=== PATIENT | male | born 1950 | race Caucasian/White ===

== ENCOUNTER 2020-05-05 11:57 | Emergency (ER) | payer MEDICARE, BC ==
[~2020-05-05 11:57] MED LIST: Tamsulosin 0.4 MG Cap.ER ONE; traMADol 50 MG Tab ONE
--- NOTE | 2020-05-05 14:24 | ER ---
REASON FOR EMERGENCY ROOM VISIT: Right flank pain. HISTORY: This 70-year-old man began to experience some right-sided flank pain along with bloody urine yesterday at approximately 2:30 a.m. this woke him up in the middle of the night, and he applied a heating pad which helped somewhat. His urine spontaneously cleared. Early this morning, he again had right flank pain that was more on the side and more lower toward the lower flank and right lower quadrant area. It was all the same type of pain. He suspected about the possibility of kidney stones as he has had this in the past, some 15 years ago. He has taken Tylenol for this but nothing else. He does have a history of prostate cancer for which he underwent a radical prostatectomy in November of 2018. His kidney stones did require transureteral removal at that time, some 15 years ago. Incidentally, he is known to have a right-sided renal tumor, the exact nature of which is unclear at this time. This measures 2.2 cm in diameter, and for this, he has been followed by the [facility] with serial scannings, etc. It sounds as though they are watching this expectantly and do not feel this is a malignant process, but it, nonetheless, is being monitored. MRI done last month at [place] showed the tumor had grown from 2.0 to 2.2 cm in diameter within a 1- year time span. For this reason, they are going to collect urine cytology and see him again in followup in [place]. With regard to his present symptoms, he has had some mild nausea but not at the present time. He has not had any fever. PAST MEDICAL HISTORY: 1. Hypertension. 2. Hypercholesterolemia. 3. Retinal detachment. 4. Prostate cancer (see above). 5. Right renal tumor (see above). MEDICATIONS: Reviewed, please see the electronic medical record. They include the followin. Atorvastatin. 2. CoQ-10. 3. Naprosyn. 4. Acetaminophen. 5. Calcium carbonate. 6. Multivitamins. 7. Losartan. 8. Glucosamine. 9. Aspirin. 10.Pancreatic enzymes. ALLERGIES: TO ERYTHROMYCIN, HYDROCHLOROTHIAZIDE, AND HYDROCODONE. SOCIAL HISTORY: He is a nonsmoker, denies any drug use, and drinks alcohol infrequently. REVIEW OF SYSTEMS: Pertinent positives and negatives as listed in the HPI. PHYSICAL EXAMINATION: GENERAL: He is a pleasant man who does not appear to be very uncomfortable. He is in no acute distress. VITAL SIGNS: Blood pressure is 145/80, heart rate is 46, respiratory rate 16, O2 saturations 99% on room air. HEENT: Unremarkable. No scleral icterus is noted. NECK: Supple. No adenopathy. CHEST: Clear to auscultation with good air exchange bilaterally. CARDIAC: Regular rate without murmur. ABDOMEN: Soft and nontender. No masses. No hepatosplenomegaly. He has an umbilical hernia. There is no right-sided CVA tenderness. He has only mild tenderness to deep palpation over his right flank area. EXTREMITIES: Normal pulses. No edema. SKIN: No rashes. LABORATORY DATA: His CBC shows that he has a mild white count elevation of 11,500. His hemoglobin is 14.9. His UA shows trace occult blood with 5 to 10 RBCs per high-power field and 0 to 5 WBCs. It is negative for nitrites and leukocyte esterase. There are no bacteria. A CT scan was performed to rule out renal stone, and indeed, he has a 3 mm obstructing right mid ureteral calculus with mild proximal hydroureter indicating obstruction. The stone is 3 mm in diameter. IMPRESSION: Right ureterolithiasis, obstructing. PLAN: A long discussion was undertaken regarding the importance of hydration. We will go ahead and give him some tramadol to help with the discomfort he may experience, 50 mg 1 p.o. q.4 hours p.r.n. pain, dispensed #10. He will be given Flomax 0.4 mg 1 p.o. daily. The importance of hydration to promote passage of the stone was emphasized to him, and he is well aware of the routine in this regard. He should probably be seen again in followup early next week. I told him there is a decent chance that this may pass on its own. Should he experience any fever or significant increase in pain, he should feel free to contact us. He is aware of the potential for infection behind an obstructing stone and how that could be a significant problem. All questions were answered. He understands and agrees with this plan. NADJA/LINDSAY /[id number]
[2020-05-05] MEDS ORDERED: Ketorolac 60 MG/2 ML SDV IM ONE (15:04)
--- NOTE | 2020-05-06 12:46 | CT ---
Date of Service: 05/05/20 Clinical Data: right flank pain UNENHANCED ABDOMEN AND PELVIC CT: Multislice acquisition through the abdomen and pelvis and without IV or oral contrast was performed. No priors. There are emphysematous changes in both lower lungs. There are linear densities in both lung bases consistent with linear atelectasis or fibrosis. The heart size is normal. No significant pericardial effusion. The liver is normal size with homogeneous attenuation. No focal hepatic lesions. The gallbladder appears normal. No pericholecystic fluid. The spleen appears normal. The pancreas appears normal. The right and left adrenals appear normal. There is a small nonobstructive renal calculi in the lower pole of the right kidney. There is also a 3 mm right ureteral calculi located in the distal right ureter at the level of the sacrum. There is hydronephrosis and hydroureter proximal to it consistent with obstruction. The right kidney also appears somewhat swollen compared to the left and there is mild perinephric fat stranding. This is probably related to obstruction. Pyelonephritis should be considered. There is a low-density lesion in the left kidney which is most likely a cyst. The kidneys and collecting systems are otherwise unremarkable. The bladder is partially fluid-filled. It appears grossly normal. The appendix is not dilated. No evidence of appendicitis. There is diverticulosis throughout the descending and sigmoid colon. No evidence of diverticulitis. There is mural thickening throughout the sigmoid colon also. This is probably related to chronic diverticular disease. No free air. No free fluid. No dilated loops of bowel. No adenopathy. No aortic aneurysm. There is a fat-containing umbilical hernia. There is degenerative disk disease throughout the lower thoracic and lumbar spine. No other significant findings. [id number] [facility]
== END 2020-05-05 14:04 | disposition home or self-care (01) ==
LOC: LB.ED 11:57
DX: N13.2 Hydronephrosis with renal and ureteral calculous obstruction (principal); I10 Essential (primary) hypertension; E78.00 Pure hypercholesterolemia, unspecified
CPT/HCPCS: 36415; 74176; 81001; 85025; 96372; 99284; A9270; J1885; 99283

== ENCOUNTER 2024-03-21 11:49 | Emergency (ER) | payer MEDICARE, BC ==
[2024-03-21 12:17] LABS: BASOPHILS ABSOLUTE AUTO 0.01 K/uL (0.02-0.10); BASOPHILS PERCENT AUTO 0.1 % (0.0-0.5); EOSINOPHILS PERCENT AUTO 1.3 % (1.0-5.0); HEMATOCRIT 40.4 % (40.0-54.0); HEMOGLOBIN 14.2 g/dL (13.0-18.0); LYMPHOCYTES ABSOLUTE AUTO 1.38 K/uL (1.50-4.00); LYMPHOCYTES PERCENT AUTO 17.6 % (20.0-40.0); MEAN CORPUSCULAR HEMOGLOBIN 32.7 pg (27.0-32.0); MEAN CORPUSCULAR HGB CONC 35.1 g/dL (31.0-35.0); MEAN CORPUSCULAR VOLUME 93 fL (76-96); MEAN PLATELET VOLUME 8.8 fL (6.0-10.0); MONOCYTES ABSOLUTE AUTO 0.63 K/uL (0.20-0.80); NEUTROPHILS ABSOLUTE AUTO 5.72 K/uL (2.00-7.50); PLATELET COUNT,PLT 141 K/uL (150-400); RED BLOOD CELL COUNT 4.34 M/uL (4.50-6.50); RED CELL DISTRIBUTION WIDTH 13.6 % (11.0-16.0); WHITE BLOOD CELL COUNT,WBC 7.8 K/uL (4.0-11.0)
[2024-03-21] MEDS: Aspirin 81 MG Tab.Chew PO ONE (12:28)
[2024-03-21 12:42] LABS: A/G RATIO 1.2 (0.8-2.0); ALBUMIN 3.7 g/dL (3.4-5.0); ANION GAP 14.7 mmol/L (5.0-15.0); BILIRUBIN TOTAL 0.8 mg/dL (0.0-1.0); BUN/CREATININE RATIO 21.6 (6-25); CALCIUM 9.2 mg/dL (8.5-10.1); CARBON DIOXIDE,CO2 25.3 mmol/L (21.0-32.0); CREATININE 1.02 mg/dL (0.70-1.30); EST CRCL DRUG DOSING (CG) 65.6 mL/min; PROTEIN TOTAL,TP 6.9 g/dL (6.4-8.2)
[2024-03-21 12:47] LABS: TROPONIN I HIGH SENSITIVITY 290.2 pg/ml (<=60.4)
[2024-03-21] MEDS: Clopidogrel 75 MG Tab PO ONE (13:01)
[2024-03-21] MEDS: Clopidogrel 75 MG Tab ONE ×2 (13:03→14:28)
[2024-03-21] MEDS: Enoxaparin 100 MG/1 ML Syringe SUBCUT ONE (13:17)
[2024-03-21] MEDS: Enoxaparin 100 MG/1 ML Syringe ONE (14:28)
== END 2024-03-21 15:38 ==
LOC: LB.ED 11:49
DX: I21.4 Non-ST elevation (NSTEMI) myocardial infarction (principal); I10 Essential (primary) hypertension; E78.00 Pure hypercholesterolemia, unspecified; Z88.6 Allergy status to analgesic agent; Z88.1 Allergy status to other antibiotic agents; Z88.5 Allergy status to narcotic agent; Z79.82 Long term (current) use of aspirin; Z79.899 Other long term (current) drug therapy; Z95.5 Presence of coronary angioplasty implant and graft
CPT/HCPCS: 36415; 80053; 84484; 85025; 93005; 96372; 99285; A9270; J1650; A0425; A0429

== ENCOUNTER 2024-04-06 21:02 | Emergency (ER) | payer MEDICARE, BC ==
[2024-04-06 21:53] LABS: BASOPHILS ABSOLUTE AUTO 0.01 K/uL (0.02-0.10); BASOPHILS PERCENT AUTO 0.1 % (0.0-0.5); EOSINOPHILS ABSOLUTE AUTO 0.17 K/uL (0.04-0.40); EOSINOPHILS PERCENT AUTO 2.1 % (1.0-5.0); HEMATOCRIT 37.4 % (40.0-54.0); LYMPHOCYTES ABSOLUTE AUTO 1.28 K/uL (1.50-4.00); LYMPHOCYTES PERCENT AUTO 15.9 % (20.0-40.0); MEAN CORPUSCULAR HEMOGLOBIN 32.7 pg (27.0-32.0); MEAN CORPUSCULAR HGB CONC 34.8 g/dL (31.0-35.0); MEAN CORPUSCULAR VOLUME 94 fL (76-96); MEAN PLATELET VOLUME 8.9 fL (6.0-10.0); MONOCYTES ABSOLUTE AUTO 0.54 K/uL (0.20-0.80); MONOCYTES PERCENT AUTO 6.7 % (3.0-10.0); NEUTROPHILS ABSOLUTE AUTO 6.04 K/uL (2.00-7.50); NEUTROPHILS PERCENT AUTO 75.2 % (45.0-70.0); PLATELET COUNT,PLT 147 K/uL (150-400); RED BLOOD CELL COUNT 3.97 M/uL (4.50-6.50); RED CELL DISTRIBUTION WIDTH 13.6 % (11.0-16.0)
[2024-04-06 22:11] LABS: A/G RATIO 1.1 (0.8-2.0); ALBUMIN 3.5 g/dL (3.4-5.0); ANION GAP 16.4 mmol/L (5.0-15.0); BILIRUBIN TOTAL 0.6 mg/dL (0.0-1.0); CALCIUM 9.1 mg/dL (8.5-10.1); CARBON DIOXIDE,CO2 24.4 mmol/L (21.0-32.0); CREATININE 1.1 mg/dL (0.70-1.30); EST CRCL DRUG DOSING (CG) 60.83 mL/min; POTASSIUM,K 3.8 mmol/L (3.5-5.1); PROTEIN TOTAL,TP 6.7 g/dL (6.4-8.2)
[2024-04-06 22:14] LABS: MAGNESIUM 2.2 mg/dL (1.8-2.4); TROPONIN I HIGH SENSITIVITY 8.3 pg/ml (<=60.4)
[2024-04-06] MEDS: Nitroglycerin 0.4 MG Tab.SL SL ONE (22:18)
[2024-04-07 01:20] VITALS: BP 132/75; PULSE 78
== END 2024-04-07 01:15 | disposition home or self-care (01) ==
LOC: LB.ED 21:02
DX: R07.89 Other chest pain (principal); I10 Essential (primary) hypertension; E78.00 Pure hypercholesterolemia, unspecified; K21.9 Gastro-esophageal reflux disease without esophagitis; Z79.899 Other long term (current) drug therapy; Z79.02 Long term (current) use of antithrombotics/antiplatelets; Z88.6 Allergy status to analgesic agent; Z88.1 Allergy status to other antibiotic agents; Z88.8 Allergy status to other drugs, medicaments and biological substances
CPT/HCPCS: 36415; 71045; 80053; 83735; 84484; 85025; 93005; 99285

== ENCOUNTER 2025-05-15 09:45 | Emergency (ER) | payer MEDICARE, BC ==
[2025-05-15] MEDS: Nitroglycerin 0.4 MG Tab.SL SL PRN (10:23)
[2025-05-15] MEDS ORDERED: Sodium Chloride 0.9% 10 ML Syringe FLUSH PRN (10:29)
[2025-05-15 10:36] LABS: BASOPHILS ABSOLUTE AUTO 0.01 K/uL (0.02-0.10); BASOPHILS PERCENT AUTO 0.2 % (0.0-0.5); EOSINOPHILS ABSOLUTE AUTO 0.07 K/uL (0.04-0.40); EOSINOPHILS PERCENT AUTO 1.1 % (1.0-5.0); LYMPHOCYTES ABSOLUTE AUTO 1.19 K/uL (1.50-4.00); LYMPHOCYTES PERCENT AUTO 18.2 % (20.0-40.0); MEAN PLATELET VOLUME 8.8 fL (6.0-10.0); MONOCYTES ABSOLUTE AUTO 0.45 K/uL (0.20-0.80); MONOCYTES PERCENT AUTO 6.9 % (3.0-10.0); NEUTROPHILS ABSOLUTE AUTO 4.81 K/uL (2.00-7.50); NEUTROPHILS PERCENT AUTO 73.6 % (45.0-70.0); PLATELET COUNT,PLT 137 K/uL (150-400); RED BLOOD CELL COUNT 4.48 M/uL (4.50-6.50); RED CELL DISTRIBUTION WIDTH 13.5 % (11.0-16.0); WHITE BLOOD CELL COUNT,WBC 6.5 K/uL (4.0-11.0)
[2025-05-15 11:00] LABS: A/G RATIO 1.2 (0.8-2.0); ALANINE AMINOTRANSFERASE,ALT 30.0 U/L (12-78); ASPARTATE AMNIOTRANSFERASE,AST 21.0 U/L (15-37); BILIRUBIN TOTAL 1.0 mg/dL (0.0-1.0); BLOOD UREA NITROGEN,BUN 22.0 mg/dL (8-26); CARBON DIOXIDE,CO2 26.7 mmol/L (21.0-32.0); CHLORIDE,CL 107.0 mmol/L (98-107); CREATININE 1.12 mg/dL (0.70-1.30); EST CRCL DRUG DOSING (CG) 60.7 mL/min; ESTIMATED GFR 69.0 mL/min (>60); GLUCOSE RANDOM 108.0 mg/dL (74-100); POTASSIUM,K 4.0 mmol/L (3.5-5.1); PRO B-TYPE NATRIUR PEPT,BNPPRO 102.0 pg/mL (0-450); PROTEIN TOTAL,TP 7.1 g/dL (6.4-8.2); SODIUM,NA 143.0 mmol/L (136-145); TROPONIN I HIGH SENSITIVITY 8.1 pg/ml (<=60.4)
== END 2025-05-15 13:10 | disposition home or self-care (01) ==
LOC: LB.ED 09:45
DX: R07.89 Other chest pain (principal); I10 Essential (primary) hypertension; E78.00 Pure hypercholesterolemia, unspecified; M19.90 Unspecified osteoarthritis, unspecified site; Z79.899 Other long term (current) drug therapy; Z88.1 Allergy status to other antibiotic agents; Z88.8 Allergy status to other drugs, medicaments and biological substances; Z88.5 Allergy status to narcotic agent
CPT/HCPCS: 36415; 71045; 80053; 83735; 83880; 84484; 85025; 85379; 93005; 99285